=== PATIENT | female | born 1950 | race Caucasian/White ===

== ENCOUNTER 2018-02-05 15:55 | Outpatient (CLI) | payer MEDICARE, OTHER ==
--- NOTE | 2018-02-05 17:54 | Diagnostic Imaging Report ---
JAY KERNS [facility] [id number] [facility] [address] [id number] Report Submission Date: Feb 05, 2018 5:06:14 PM CDT Patient Study Name: MAX SHANKAR Date: Feb 05, 2018 4:15:40 PM CDT Modality Type: DX Gender: F Description: LOWER EXTREMITY : 46 Institution: [facility] Physician: JAY KERNS Examination: Plain film right knee History: BILAT AP KNEES WITH RT LAT, PAIN IN RT KNEE FOR SEVERAL YEARS, WORSENING WITH NO KNOWN INJURY (Hx) Findings: 2 views of the right knee and single view of the left knee demonstrates osteopenia. Tibial spine and articular spurring. Lateral joint space narrowing. No joint effusion. Impression: Osteopenia and advanced degenerative changes. No fracture. Electronically signed on Feb 05, 2018 5:06:14 PM CDT by: Sarabjit OVALLE
== END 2018-02-05 15:56 ==
LOC: RAD 15:55
PROVIDERS: ATTEND Family Medicine
DX: M25.561 Pain in right knee (principal)
CPT/HCPCS: 73565